=== PATIENT | male | born 1995 | race Caucasian/White ===

== ENCOUNTER 2016-11-18 20:30 | Emergency (ER) | payer BC ==
[2016-11-18] MEDS ORDERED: Bupivacaine 0.5%/EPINEPHrine 1:200,000 50 ML MDV NERVRT ONE (20:47)
--- NOTE | 2016-11-18 20:58 | EDM.PDOC ---
ED HPI GENERAL MEDICAL PROBLEM - General Chief Complaint: ENT Problem Stated Complaint: TOOTHACHE Time Seen by Provider: 11/18/16 20:40 Source of Information: Reports: Patient History Limitations: Reports: No Limitations - History of Present Illness INITIAL COMMENTS - FREE TEXT/NARRATIVE: 21 yo male here with a toothache. Onset last night. Saw his primary today and did not mention the pain. Has not made a dentist appt yet. No fever or facial swelling. Onset Date: 11/17/16 Duration: Hour(s):, Getting Worse Location: Reports: Face Quality: Reports: Ache Severity: Moderate Improves with: Reports: None Worsens with: Reports: Other (Time/eating) Context: Reports: Other (dental neglect) Associated Symptoms: Reports: No Other Symptoms Treatments REHAB CARE ASSISTANT: Reports: Other (see below) (none) - Related Data Allergies Allergy/AdvReac Type Severity Reaction Status Date / Time No Known Allergies Allergy Verified 11/18/16 20:47 Home Meds: Home Meds Diclofenac Sodium [Diclofenac Sodium] 1 tab PO BID 11/18/16 [History] Hydrocodone/Acetaminophen [[place] 5-325] 1 tab PO Q4H PRN #10 tablet 11/18/16 [Rx ] Penicillin V Potassium 500 mg PO Q6HR #30 tab 11/18/16 [Rx] ED ROS ENT - Review of Systems Review Of Systems: See Below Constitutional: Reports: No Symptoms HEENT: Reports: Dental Pain Respiratory: Reports: No Symptoms Cardiovascular: Reports: No Symptoms GI/Abdominal: Reports: No Symptoms Musculoskeletal: Reports: No Symptoms Skin: Reports: No Symptoms Neurological: Reports: No Symptoms ED EXAM, ENT - Physical Exam Exam: See Below Exam Limited By: No Limitations General Appearance: Alert, WD/WN, No Apparent Distress Eye Exam: Bilateral Eye: Normal Inspection, PERRL Ears: Normal External Exam, Normal Canal, Hearing Grossly Normal Nose: Normal Inspection, Normal Mucousa, No Blood Mouth/Throat: Normal Gums, Normal Lips, Normal Oropharynx, Dental Tenderness, Other (R upper posterior most molar is broken off and decayed and tender with percussion. ) Head: Atraumatic, Normocephalic Neck: Normal Inspection, Supple, Non-Tender, Full Range of Motion. No: Lymphadenopathy (R), Lymphadenopathy (L) Respiratory/Chest: No Respiratory Distress, Lungs Clear, Normal Breath Sounds, No Accessory Muscle Use Cardiovascular: Regular Rate, Rhythm, No Edema GI/Abdominal: Normal Bowel Sounds, Soft, Non-Tender, No Distention Back: Normal Inspection, Full Range of Motion Extremities: Normal Inspection, Normal Range of Motion, Non-Tender Neurological: Alert, Oriented, CN II-XII Intact, Normal Cognition, Normal Gait, Normal Reflexes, No Motor/Sensory Deficits Psychiatric: Normal Affect, Normal Mood Skin: Warm, Dry, Intact, Normal Color, No Rash Lymphatic: No Adenopathy Course - Vital Signs Text/Narrative:: Local injection with 5 ml of 0.5% bupivacaine with epi, relief afforded. PenVK 1000 mg po Last Recorded V/S: Last Vital Signs Temp 36.5 C 11/18/16 20:40 Pulse 68 11/18/16 20:40 Resp 16 11/18/16 20:40 BP 118/74 11/18/16 20:40 Pulse Ox 100 11/18/16 20:40 - Orders/Labs/Meds Meds: Medications Discontinued Medications Generic Name Dose Route Start Last Admin Trade Name Rufino PRN Reason Stop Dose Admin Bupivacaine HCl/Epinephrine Bitart 50 ml 11/18/16 20:47 Marcaine 0.5%/Epinephrine 1:200,000 NERVRT 11/18/16 20:48 ONETIME ONE Penicillin V Potassium 1,000 mg 11/18/16 21:01 Veetids PO 11/18/16 21:02 NOW STA Departure - Departure Time of Disposition: 21:10 Disposition: Home, Self-Care 01 Condition: good Clinical Impression: Pain due to dental caries - Discharge Information Prescriptions: Penicillin V Potassium 500 mg PO Q6HR #30 tab Hydrocodone/Acetaminophen [[place] 5-325] 1 tab PO Q4H PRN #10 tablet PRN Reason: Pain Referrals: PCP,None [Primary Care Provider] - Forms: ED Department Discharge Care Plan Goals: Take penicillin every 6 hrs. Take ibuprofen and/or acetaminophen as directed on the bottle for pain relief as needed. If needed substitute [place] for the acetaminophen. See a dentist orin. See your doctor for recheck if you cannot get into your dentist promptly.
[2016-11-18] MEDS ORDERED: Penicillin V Potassium 500 MG Tab PO STA (21:01)
[2016-11-18 21:43] VITALS: BP 130/75
== END 2016-11-18 21:30 | disposition home or self-care (01) ==
LOC: FB.ED 20:30
DX: K02.9 Dental caries, unspecified (principal)
CPT/HCPCS: 99282; A9270

== ENCOUNTER 2018-01-19 22:46 | Emergency (ER) | payer BC, OTHER ==
[2018-01-19 23:02] VITALS: BP 123/80
[2018-01-19] MEDS ORDERED: Albuterol/Ipratropium 3.0-0.5 MG/3 ML Neb Soln NEB ONE (23:09)
[2018-01-19] MEDS ORDERED: predniSONE 20 MG Tab PO ONE (23:13)
--- NOTE | 2018-01-20 06:52 | ER ---
DATE SEEN: 01/19/2018 CHIEF COMPLAINT: Cough. HISTORY OF PRESENT ILLNESS: This is a 22-year-old male complaining of a cough. This was initiated by contact with dust at work. It is nonproductive, constant, difficulty breathing. He has a history of asthma. REVIEW OF SYSTEMS: He complains of feeling weak and his head feeling hot. He denies fever or chest pain. No sore throat. ALLERGIES: No known allergies. PAST MEDICAL HISTORY: Asthma, HUS. PHYSICAL EXAMINATION: GENERAL: He is not in distress. VITAL SIGNS: He is afebrile and normotensive. His pulse is 112. ENT: Normal. NECK: Supple. CHEST: Clear. CARDIOVASCULAR: Normal. IMPRESSION: Acute asthma exacerbation. TREATMENT: DuoNeb x1 and prednisone 10 mg b.i.d. orally for 5 days. See physician in 1 to 2 days. Return to the emergency room with any worsening symptoms. /[id number] JONES/SUZY
== END 2018-01-19 23:30 | disposition home or self-care (01) ==
LOC: FB.ED 22:46
DX: J45.901 Unspecified asthma with (acute) exacerbation (principal)
CPT/HCPCS: 99282; A9270; J7620

== ENCOUNTER 2018-11-23 01:35 | Emergency (ER) | payer OTHER ==
[2018-11-23] MEDS ORDERED: Albuterol/Ipratropium 3.0-0.5 MG/3 ML Neb Soln NEB ONE (01:40)
[2018-11-23] MEDS: Albuterol/Ipratropium 3.0-0.5 MG/3 ML Neb Soln ONE ×2 (01:40→01:50)
[2018-11-23] MEDS ORDERED: predniSONE 20 MG Tab PO ONE (01:45)
[2018-11-23] MEDS ORDERED: Codeine/guaiFENesin 100-10 MG/5 ML Syrup 5 ML Cup PO ONE (01:46)
--- NOTE | 2018-11-23 01:50 | EDM.PDOC ---
ED HPI GENERAL MEDICAL PROBLEM - General Stated Complaint: COUGH Time Seen by Provider: 11/23/18 01:35 Source of Information: Reports: Patient History Limitations: Reports: Respiratory Distress - History of Present Illness INITIAL COMMENTS - FREE TEXT/NARRATIVE: 23 y.o.w.m came to the ED with a nonproductive cough in the past several hours. Pt has cough for 3 weeks, was seen by various Doctors and was told at first it is a virus and then he was told it is a pneumonia. He was given Zithromax, which he finished 4 days ago. He never smoked. No SOB, No CP. bp 127/87 RR 28 Pulse ox 100% Temp 36.8 Onset Date: 11/22/18 Onset Time: 22:00 Duration: Minutes:, Hour(s):, Intermittent Location: Reports: Chest Quality: Reports: Other (cough) Severity: Moderate Improves with: Reports: Medication Worsens with: Reports: Other Context: Reports: Other Associated Symptoms: Reports: Cough, Shortness of Breath - Related Data Allergies Allergy/AdvReac Type Severity Reaction Status Date / Time No Known Allergies Allergy Verified 01/19/18 22:54 Home Meds: Home Meds predniSONE [Prednisone] 20 mg PO DAILY #3 tablet 11/23/18 [Rx] Past Medical History - Past Health History Medical/Surgical History: Denies Medical/Surgical History Respiratory History: Reports: Asthma Hematologic History: Reports: Other (See Below) Other Hematologic History: 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 Social & Family History - Family History Family Medical History: Noncontributory - Caffeine Use Caffeine Use: Reports: Tea ED ROS GENERAL - Review of Systems Review Of Systems: See Below Constitutional: Reports: No Symptoms HEENT: Reports: No Symptoms Respiratory: Reports: Shortness of Breath, Wheezing, Cough Cardiovascular: Reports: No Symptoms Endocrine: Reports: No Symptoms GI/Abdominal: Reports: No Symptoms : Reports: No Symptoms Musculoskeletal: Reports: No Symptoms Skin: Reports: No Symptoms Neurological: Reports: No Symptoms Psychiatric: Reports: No Symptoms Hematologic/Lymphatic: Reports: No Symptoms Immunologic: Reports: No Symptoms ED EXAM, GENERAL - Physical Exam Exam: See Below Exam Limited By: Respiratory Distress General Appearance: Alert, WD/WN, Moderate Distress Eye Exam: Bilateral Eye: Normal Inspection Ears: Normal External Exam, Normal Canal Ear Exam: Bilateral Ear: Auricle Normal Nose: Normal Inspection, Normal Mucosa, No Blood Throat/Mouth: Normal Inspection, Normal Lips, Normal Teeth, Normal Voice, No Airway Compromise Head: Atraumatic, Normocephalic Neck: Normal Inspection, Supple, Non-Tender, Full Range of Motion Respiratory/Chest: No Respiratory Distress, Lungs Clear, Normal Breath Sounds Cardiovascular: Normal Peripheral Pulses, Regular Rate, Rhythm, No Edema, No Gallop GI/Abdominal: Normal Bowel Sounds, Soft, Non-Tender, No Organomegaly (Male) Exam: Deferred Rectal (Males) Exam: Deferred Back Exam: Normal Inspection, Full Range of Motion Extremities: Normal Inspection, Normal Range of Motion, Non-Tender Neurological: Alert, Oriented, CN II-XII Intact, Normal Cognition, Normal Gait Psychiatric: Normal Affect, Anxious Skin Exam: Warm, Dry, Intact, Normal Color, No Rash Lymphatic: No Adenopathy Course - Vital Signs Text/Narrative:: 23 y.o.w.m came to the ED with a nonproductive cough in the past several hours. Pt has cough for 3 weeks, was seen by various Doctors and was told at first it is a virus and then he was told it is a pneumonia. He was given Zithromax, which he finished 4 days ago. He never smoked. No SOB, No CP. bp 127/87 RR 28 Pulse ox 100% Temp 36.8 PE: WNWD W M with a severe nonproductive cough for several hours Imaging: CXE 2 views: NAD Impression: Possible reactive airway disease Tx: Duoneb, Albuterol, Prednisone, Codeine, Spiriva inhaler Reexam: Cough Improved 90% on D/C Plan: D/C with instructions Last Recorded V/S: Last Vital Signs Temp 36.8 C 11/23/18 01:40 Pulse 97 11/23/18 01:40 Resp 28 H 11/23/18 01:40 BP 124/87 11/23/18 01:40 Pulse Ox 100 11/23/18 01:40 - Orders/Labs/Meds Orders: Active Orders 24 hr Category Date Time Status RT Aerosol Therapy [RC] ASDIRECTED Care 11/23/18 01:40 Active RT Aerosol Therapy [RC] ASDIRECTED Care 11/23/18 02:29 Ordered RT Post Treatment Assessment [RC] Click to Edit Care 11/23/18 02:43 Ordered RT Post Treatment Assessment [RC] Click to Edit Care 11/23/18 02:45 Ordered CXR [Chest 2V] [CR] Stat Exams 11/23/18 01:59 Taken Tiotropium [Spiriva HandiHaler] Med 11/23/18 09:00 Ordered 18 mcg INH DAILY Medication Orders Tiotropium [place] (Spiriva Handihaler) 18 mcg INH DAILY ARMIN Last Admin: 11/23/18 02:47 Dose: 4 dose Meds: Medications Generic Name Dose Route Start Last Admin Trade Name Freq PRN Reason Stop Dose Admin Tiotropium [place] 18 mcg 11/23/18 09:00 11/23/18 02:47 Spiriva Handihaler INH 4 dose DAILY ARMIN Administration Discontinued Medications Generic Name Dose Route Start Last Admin Trade Name Freq PRN Reason Stop Dose Admin Albuterol 2.5 mg 11/23/18 02:29 11/23/18 02:39 Proventil Neb Soln NEB 11/23/18 02:30 2.5 mg ONETIME ONE Administration Albuterol/Ipratropium Confirm 11/23/18 01:39 11/23/18 01:50 Duoneb 3.0-0.5 Mg/3 Ml Administered 11/23/18 01:40 Not Given Dose 3 ml .ROUTE .STK-MED ONE Albuterol/Ipratropium 3 ml 11/23/18 01:40 11/23/18 01:40 Duoneb 3.0-0.5 Mg/3 Ml NEB 11/23/18 01:41 3 ml ONETIME ONE Administration Guaifenesin/Codeine Phosphate 5 ml 11/23/18 01:46 11/23/18 01:57 Robitussin Ac PO 11/23/18 01:47 5 ml ONETIME ONE Administration Hydroxyzine HCl 50 mg 11/23/18 02:10 11/23/18 02:22 Vistaril IM 11/23/18 02:11 50 mg ONETIME ONE Administration Prednisone 40 mg 11/23/18 01:45 11/23/18 01:53 Prednisone PO 11/23/18 01:46 40 mg ONETIME ONE Administration Tiotropium [place] 18 mcg 11/23/18 02:30 11/23/18 02:40 Spiriva Handihaler INH 11/23/18 02:31 1 dose ONETIME STA Administration Departure - Departure Time of Disposition: 02:46 Disposition: Home, Self-Care 01 Condition: Good Clinical Impression: Reactive airway disease with wheezing with acute exacerbation - Discharge Information Prescriptions: predniSONE [Prednisone] 20 mg PO DAILY #3 tablet Referrals: Jah Pringle MD [Primary Care Provider] - Additional Instructions: Please use the Spiriva In haler daily for 4 days, please take prednisone for 3 days, Please f/u, come back if your symptoms get worse acutely. - My Orders Last 24 Hours: My Active Orders 11/23/18 01:40 RT Aerosol Therapy [RC] ASDIRECTED 11/23/18 01:59 CXR [Chest 2V] [CR] Stat 11/23/18 02:29 RT Aerosol Therapy [RC] ASDIRECTED 11/23/18 02:43 RT Post Treatment Assessment [RC] Click to Edit 11/23/18 02:45 RT Post Treatment Assessment [RC] Click to Edit 11/23/18 09:00 Tiotropium [Spiriva HandiHaler] 18 mcg INH DAILY - Assessment/Plan Last 24 Hours: My Active Orders 11/23/18 01:40 RT Aerosol Therapy [RC] ASDIRECTED 11/23/18 01:59 CXR [Chest 2V] [CR] Stat 11/23/18 02:29 RT Aerosol Therapy [RC] ASDIRECTED 11/23/18 02:43 RT Post Treatment Assessment [RC] Click to Edit 11/23/18 02:45 RT Post Treatment Assessment [RC] Click to Edit 11/23/18 09:00 Tiotropium [Spiriva HandiHaler] 18 mcg INH DAILY
[2018-11-23] MEDS ORDERED: hydrOXYzine HCl 50 MG/ML SDV IM ONE (02:10)
[2018-11-23] MEDS ORDERED: Albuterol 0.083% 2.5 MG/3 ML Neb Soln NEB ONE (02:29)
[2018-11-23] MEDS ORDERED: Tiotropium Inhaler 18 MCG Inhalation Powder Cap Kit of 5 INH STA (02:30)
[2018-11-23 05:12] VITALS: BP 117/73
[2018-11-23] MEDS ORDERED: Tiotropium Inhaler 18 MCG Inhalation Powder Cap Kit of 5 INH SCH (09:00)
== END 2018-11-23 03:00 | disposition home or self-care (01) ==
LOC: FB.ED 01:35
DX: J45.901 Unspecified asthma with (acute) exacerbation (principal); Z79.899 Other long term (current) drug therapy
CPT/HCPCS: 71046; 94640; 96372; 99283; A9270; J3410; J7620-GY

== ENCOUNTER 2019-01-08 20:34 | Emergency (ER) | payer OTHER ==
[2019-01-08] MEDS ORDERED: Lidocaine 1% 20 ML MDV INFILT ONE (20:35)
[2019-01-08 21:44] VITALS: BP 126/78; PULSE 63
--- NOTE | 2019-01-08 23:30 | EDM.PDOC ---
ED HPI GENERAL MEDICAL PROBLEM - General Chief Complaint: General Stated Complaint: TOOTH ACHE Time Seen by Provider: 01/08/19 23:00 Source of Information: Reports: Patient History Limitations: Reports: No Limitations - History of Present Illness INITIAL COMMENTS - FREE TEXT/NARRATIVE: patient presents today with concern for acute onset of tooth pain that happened while he was at the fair in [place] this afternoon. He took 800 mg of ibuprofen which she got epigastric and prior to coming home, but states that the pain is severe. History of dental issues and is scheduled to have 3 teeth removed. He states that he is previously greatly benefit from getting a nerve block. No swelling, no fevers or chills, no difficulty swallowing and no other medical conditions contributing. - Related Data Allergies Allergy/AdvReac Type Severity Reaction Status Date / Time No Known Allergies Allergy Verified 01/08/19 21:41 Home Meds: Home Meds Albuterol Sulfate [Proair Hfa] 1 - 2 puff INH Q4HR PRN 11/23/18 [History] Past Medical History - Past Health History Medical/Surgical History: Denies Medical/Surgical History Respiratory History: Reports: Asthma Hematologic History: Reports: Other (See Below) Other Hematologic History: States he has had Wsullg-Pzfjaljhh-Tcgmsed condition since the age of 8. - Past Surgical History Musculoskeletal Surgical History: Reports: Other (See Below) Other Musculoskeletal Surgeries/Procedures:: hand surgery Social & Family History - Family History Family Medical History: Noncontributory - Tobacco Use Smoking Status *Q: Never Smoker Second Hand Smoke Exposure: No - Caffeine Use Caffeine Use: Reports: Soda - Recreational Drug Use Recreational Drug Use: No ED ROS GENERAL - Review of Systems Review Of Systems: ROS reveals no pertinent complaints other than HPI. ED EXAM, GENERAL - Physical Exam Exam: See Below Free Text/Narrative:: general: Alert, pleasant but clearly uncomfortable. Mouth exam shows poor dentition overall, throat is without erythema and mucous members are moist. He has no swelling noted of the jaw and no sinus tenderness. There are no signs of infection. He has pain of tooth 13 or 14 on the left upper maxilla Course - Vital Signs Text/Narrative:: tooth pain, likely carry related with no sign of forming abscess. Patient agreeable to dental block Utilizing a 27-gauge needle, 2 mL of 1% lidocaine without epi was injected into the posterior superior alveolar area. The patient reported immediate relief of his symptoms and was quite satisfied. He is already scheduled to have some teeth extracted. Discussed lrwn-wxc-esahlkh analgesics and other treatments for dental pain over the weekend. All questions answered Last Recorded V/S: Last Vital Signs Temp 36.7 C 01/08/19 21:15 Pulse 63 01/08/19 21:15 Resp 18 01/08/19 21:15 BP 126/78 01/08/19 21:15 Pulse Ox 100 01/08/19 21:15 Departure - Departure Time of Disposition: 23:27 Disposition: Home, Self-Care 01 Condition: Good Clinical Impression: Dental cavity - Discharge Information Referrals: Henry Miller MD [Primary Care Provider] - Forms: ED Department Discharge Additional Instructions: call dentist ibuprofen ok 800mg (4 tabs) drink lots of water with this tylenol per bottle dental kit, available at some pharmacies, usually has clove oil, sometimes peppermint oil, benzocaine gel -- all helpful topicals
== END 2019-01-08 23:35 | disposition home or self-care (01) ==
LOC: FB.ED 20:34
DX: K02.9 Dental caries, unspecified (principal); J45.909 Unspecified asthma, uncomplicated; Z79.899 Other long term (current) drug therapy
CPT/HCPCS: 64400; 99283; J2001

== ENCOUNTER 2019-08-05 19:03 | Emergency (ER) | payer BC, OTHER ==
[2019-08-05] MEDS ORDERED: Sodium Chloride 0.9% 10 ML Syringe FLUSH PRN (19:31)
--- NOTE | 2019-08-05 19:33 | EDM.PDOC ---
ED HPI GENERAL MEDICAL PROBLEM - General Stated Complaint: chest pain Time Seen by Provider: 08/05/19 19:20 Source of Information: Reports: Patient History Limitations: Reports: No Limitations - History of Present Illness INITIAL COMMENTS - FREE TEXT/NARRATIVE: 21-year-old male who states that about 8 AM today just after a team meeting at his work he was walking to the shop and he developed pain in his left upper chest and shoulder area that was a sharp type pain and was quite severe. It was also an aching and cramping type pain that at times during the personal but it did go up to a 10/10 level of pain. The pain has really never gone away at all through the day and has had a constant aching pain underneath it that he rates as a 4/10 which it is now. He has had no cough. He has had no fevers. No hemoptysis. He does feel somewhat short of breath. The pain does seem to go into his shoulder and his upper back. It is reproducible by taking a deep breath. No syncope but when the pain gets very severe he does feel presyncopal. There are no other associated signs or symptoms. There are no other modifying factors. 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 - Past Surgical History Musculoskeletal Surgical History: Reports: Other (See Below) Other Musculoskeletal Surgeries/Procedures:: Tendon repair of left hand Social & Family History - Tobacco Use Smoking Status *Q: Unknown Ever Smoked (Nonsmoker) Tobacco Use Within Last Twelve Months: Smokeless Tobacco - Caffeine Use Caffeine Use: Reports: Soda - Alcohol Use Alcohol Use History: Yes Alcohol Use Frequency: Daily (3-4 beers daily) - Living Situation & Occupation Occupation: Employed ED ROS GENERAL - Review of Systems Review Of Systems: See Below Constitutional: Reports: No Symptoms HEENT: Reports: No Symptoms Respiratory: Reports: Shortness of Breath, Pleuritic Chest Pain Cardiovascular: Reports: Chest Pain Endocrine: Reports: No Symptoms GI/Abdominal: Reports: No Symptoms : Reports: No Symptoms Musculoskeletal: Reports: Shoulder Pain (Left), Arm Pain (Left) Skin: Reports: No Symptoms Neurological: Reports: No Symptoms Hematologic/Lymphatic: Reports: No Symptoms Immunologic: Reports: No Symptoms ED EXAM, GENERAL - Physical Exam Exam: See Below Exam Limited By: No Limitations General Appearance: Alert, WD/WN, Moderate Distress Eye Exam: Right Eye: Nystagmus, Bilateral Eye: EOMI, Normal Inspection, PERRL Ears: Normal External Exam, Hearing Grossly Normal Ear Exam: Bilateral Ear: Auricle Normal Nose: Normal Inspection, Normal Mucosa, No Blood Throat/Mouth: Normal Inspection, Normal Lips, Normal Oropharynx, Normal Voice, No Airway Compromise Head: Atraumatic, Normocephalic Neck: Normal Inspection, Supple, Non-Tender, Full Range of Motion Respiratory/Chest: No Respiratory Distress, Lungs Clear, Normal Breath Sounds, No Accessory Muscle Use, Chest Non-Tender Cardiovascular: Normal Peripheral Pulses, Regular Rate, Rhythm, No Edema, No Murmur Peripheral Pulses: 2+: Radial (L), Radial (R), Dorsalis Pedis (L), Dorsalis Pedis (R) GI/Abdominal: Normal Bowel Sounds, Soft, Non-Tender, No Mass Back Exam: Normal Inspection, Full Range of Motion Extremities: Normal Inspection, Normal Range of Motion, Non-Tender Neurological: Alert, Oriented, CN II-XII Intact, Normal Cognition, No Motor/ Sensory Deficits Skin Exam: Warm, Dry, Intact, Normal Color, No Rash EKG INTERPRETATION EKG Date: 08/05/19 Time: 19:12 Rhythm: NSR Rate (Beats/Min): 70 [place]: RAD-Right [place] Deviation P-Wave: Present QRS: Normal ST-T: Normal QT: Normal Comparison: NA - No Prior EKG Course - Vital Signs Last Recorded V/S: Last Vital Signs Temp 36.6 C 08/05/19 19:20 Pulse 73 08/05/19 19:20 Resp 16 08/05/19 19:20 BP 127/82 08/05/19 19:20 Pulse Ox 100 08/05/19 19:20 - Orders/Labs/Meds Orders: Active Orders 24 hr Category Date Time Status EKG Documentation Completion [RC] ASDIRECTED Care 08/05/19 19:32 Active Sodium Chloride 0.9% [Saline Flush] Med 08/05/19 19:31 Active 10 ml FLUSH ASDIRECTED PRN Peripheral IV Insertion Adult [OM.PC] Routine Oth 08/05/19 19:31 Ordered EKG 12 Lead [EK] Routine Ther 08/05/19 19:32 Ordered Medication Orders Sodium Chloride (Saline Flush) 10 ml FLUSH ASDIRECTED PRN PRN Reason: Keep Vein Open Labs: Laboratory Tests 08/05/19 08/05/19 08/05/19 Range/Units 19:50 19:50 19:50 WBC 6.5 (4.5-12.0) X10-3/uL RBC 4.91 (4.30-5.75) x10(6)uL Hgb 14.7 (13.5-17.8) g/dL Hct 43.4 (30.0-51.3) % MCV 88.4 (80-96) fL MCH 30.0 (27.7-33.6) pg MCHC 34.0 (32.2-35.4) g/dL RDW 12.1 (11.5-15.5) % Plt Count 357 (125-369) X10(3)uL MPV 7.2 L (7.4-10.4) fL Neut % (Auto) 62.5 (46-82) % Lymph % (Auto) 23.7 (13-37) % [place] % (Auto) 6.6 (4-12) % Eos % (Auto) 3 (1.0-5.0) % Baso % (Auto) 4 H (0-2) % Neut # (Auto) 4.1 (1.6-8.3) # Lymph # (Auto) 1.5 (0.6-5.0) # [place] # (Auto) 0.4 (0.0-1.3) # Eos # (Auto) 0.2 (0.0-0.8) # Baso # (Auto) 0.3 H (0.0-0.2) # D-Dimer, Quantitative < 0.19 (0.0-0.59) mg/LFEU Sodium 141 (135-145) mmol/L Potassium 4.0 (3.5-5.3) mmol/L Chloride 103 (100-110) mmol/L Carbon Dioxide 28 (21-32) mmol/L BUN 11 (7-18) mg/dL Creatinine 0.9 (0.70-1.30) mg/dL Est Cr Clr Drug Dosing 105.73 mL/min Estimated GFR (MDRD) > 60 (>60) BUN/Creatinine Ratio 12.2 (9-20) Glucose 86 (80-116) mg/dL Calcium 9.3 (8.6-10.2) mg/dL Magnesium 2.0 (1.8-2.5) mg/dL Total Bilirubin 0.4 (0.1-1.3) mg/dL AST 31 H (5-25) IU/L ALT 22 (12-36) U/L Alkaline Phosphatase 82 (56-112) IU/L Troponin I (4.0-60.3) pg/mL Total Protein 7.7 (6.0-8.0) g/dL Albumin 4.4 (3.5-5.2) g/dL Globulin 3.3 g/dL Albumin/Globulin Ratio 1.3 08/05/19 Range/Units 19:50 WBC (4.5-12.0) X10-3/uL RBC (4.30-5.75) x10(6)uL Hgb (13.5-17.8) g/dL Hct (30.0-51.3) % MCV (80-96) fL MCH (27.7-33.6) pg MCHC (32.2-35.4) g/dL RDW (11.5-15.5) % Plt Count (125-369) X10(3)uL MPV (7.4-10.4) fL Neut % (Auto) (46-82) % Lymph % (Auto) (13-37) % [place] % (Auto) (4-12) % Eos % (Auto) (1.0-5.0) % Baso % (Auto) (0-2) % Neut # (Auto) (1.6-8.3) # Lymph # (Auto) (0.6-5.0) # [place] # (Auto) (0.0-1.3) # Eos # (Auto) (0.0-0.8) # Baso # (Auto) (0.0-0.2) # D-Dimer, Quantitative (0.0-0.59) mg/LFEU Sodium (135-145) mmol/L Potassium (3.5-5.3) mmol/L Chloride (100-110) mmol/L Carbon Dioxide (21-32) mmol/L BUN (7-18) mg/dL Creatinine (0.70-1.30) mg/dL Est Cr Clr Drug Dosing mL/min Estimated GFR (MDRD) (>60) BUN/Creatinine Ratio (9-20) Glucose (80-116) mg/dL Calcium (8.6-10.2) mg/dL Magnesium (1.8-2.5) mg/dL Total Bilirubin (0.1-1.3) mg/dL AST (5-25) IU/L ALT (12-36) U/L Alkaline Phosphatase (56-112) IU/L Troponin I 4.7 (4.0-60.3) pg/mL Total Protein (6.0-8.0) g/dL Albumin (3.5-5.2) g/dL Globulin g/dL Albumin/Globulin Ratio Meds: Medications Generic Name Dose Route Start Last Admin Trade Name Freq PRN Reason Stop Dose Admin Sodium Chloride 10 ml 08/05/19 19:31 Saline Flush FLUSH ASDIRECTED PRN Keep Vein Open Discontinued Medications Generic Name Dose Route Start Last Admin Trade Name Freq PRN Reason Stop Dose Admin Ketorolac Tromethamine 30 mg 08/05/19 21:33 Toradol IVPUSH 08/05/19 21:34 ONETIME ONE - Radiology Interpretation Free Text/Narrative:: Portable chest x-ray showed no acute disease per the radiologist. - Re-Assessments/Exams Free Text/Narrative Re-Assessment/Exam: 08/05/19 21:57: The patient's blood tests were all reassuringly normal. Specifically, his d-dimer and troponin were both normal. The EKG was normal. The chest x-ray was normal. This appears to be musculoskeletal chest pain or costochondritis. I'll had ordered Toradol 30 mg IV to be given and that will be given prior to his discharge. He is currently having 5/10 level of pain in his left chest with breathing and with movement of his left arm. He will need to avoid any strenuous use with his left arm is week and he will need to take ibuprofen and Tylenol for his pain as needed. Departure - Departure Time of Disposition: 22:10 Disposition: Home, Self-Care 01 Condition: Good Clinical Impression: Chest wall pain, Costochondritis, acute - Discharge Information Instructions: Costochondritis, Gtec-mw-Ufbs, Chest Wall Pain, [id number] Referrals: Henry Miller MD [Primary Care Provider] - Additional Instructions: Your blood tests were all reassuringly normal. These rule out both a heart attack and blood clots. You appear to have inflammation of the cartilage between your ribs and your breastbone. This is called costochondritis. You should avoid any strenuous use with your left arm for the next week. You should take ibuprofen and Tylenol for pain as needed. Back to the emergency department for coughing up blood, marked increase in pain, trouble breathing, high fever or any other concerning sign or symptom. Sepsis Event Note - Focused Exam Vital Signs: Vital Signs Temp Pulse Resp BP Pulse Ox 08/05/19 19:20 36.6 C 73 16 127/82 100 Date Exam was Performed: 08/05/19 Time Exam was Performed: 22:02 - My Orders Last 24 Hours: My Active Orders 08/05/19 19:31 Sodium Chloride 0.9% [Saline Flush] 10 ml FLUSH ASDIRECTED PRN Peripheral IV Insertion Adult [OM.PC] Routine 08/05/19 19:32 EKG Documentation Completion [RC] ASDIRECTED EKG 12 Lead [EK] Routine - Assessment/Plan Last 24 Hours: My Active Orders 08/05/19 19:31 Sodium Chloride 0.9% [Saline Flush] 10 ml FLUSH ASDIRECTED PRN Peripheral IV Insertion Adult [OM.PC] Routine 08/05/19 19:32 EKG Documentation Completion [RC] ASDIRECTED EKG 12 Lead [EK] Routine
[2019-08-05 20:07] VITALS: BP 127/82; PULSE 73
--- NOTE | 2019-08-05 20:49 | CR ---
INDICATION: Chest pain. CHEST, ONE VIEW: Portable AP upright view of the chest 08/05/19 was compared with PA view of 11/23/18. The lungs appear to be somewhat hyperaerated. However, no active infiltrate or effusion was identified. The heart, mediastinum and bony thorax were unremarkable except for a suggestion of very minimal dextroconvex scoliosis of the thoracic spine. Overlying EKG leads are noted. No evidence of pneumothorax was seen. IMPRESSION: 1. No definite acute process. The lungs appear to be somewhat hyperaerated. 2. There is suggestion of minimal scoliosis. MTDD
[2019-08-05] MEDS ORDERED: Ketorolac 30 MG/ML SDV IVPUSH ONE (21:33)
== END 2019-08-05 22:30 | disposition home or self-care (01) ==
LOC: FB.ED 19:03
DX: M94.0 Chondrocostal junction syndrome [Tietze] (principal); J45.909 Unspecified asthma, uncomplicated; Z79.899 Other long term (current) drug therapy
CPT/HCPCS: 36415; 71045; 80053; 83735; 84484; 85025; 85379; 93005; 96374; 99285-25; J1885

== ENCOUNTER 2020-09-12 18:43 | Emergency (ER) | payer BC ==
--- NOTE | 2020-09-12 19:31 | EDM.PDOC ---
ED HPI GENERAL MEDICAL PROBLEM - General Stated Complaint: BLOOD IN STOOL Time Seen by Provider: 09/12/20 18:45 Source of Information: Reports: Patient History Limitations: Reports: No Limitations - History of Present Illness INITIAL COMMENTS - FREE TEXT/NARRATIVE: Patient presented to the ED because of bright red blood in stool. He has a history of internal hemorrhoids. - Related Data Allergies Allergy/AdvReac Type Severity Reaction Status Date / Time No Known Allergies Allergy Verified 08/05/19 20:08 Home Meds: Home Meds Albuterol Sulfate [Proair Hfa] 1 - 2 puff INH Q4HR PRN 11/23/18 [History] Hydrocortisone Acetate [Proctocort] 1 supp RC TID #15 supp.rect 09/12/20 [Rx] Past Medical History - Past Health History Medical/Surgical History: Denies Medical/Surgical History Cardiovascular History: Reports: Other (See Below) Other Cardiovascular History: Holter Monitor around 2016, and Stress Test around 2018. 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 - Past Surgical History Musculoskeletal Surgical History: Reports: Other (See Below) Other Musculoskeletal Surgeries/Procedures:: Tendon repair of left hand Social & Family History - Family History Family Medical History: No Pertinent Family History - Caffeine Use Caffeine Use: Reports: Soda - Living Situation & Occupation Occupation: Employed ED ROS GENERAL - Review of Systems Review Of Systems: See Below Constitutional: Reports: No Symptoms HEENT: Reports: No Symptoms Respiratory: Reports: No Symptoms Cardiovascular: Reports: No Symptoms Endocrine: Reports: No Symptoms GI/Abdominal: Reports: No Symptoms : Reports: No Symptoms Musculoskeletal: Reports: No Symptoms Skin: Reports: No Symptoms Neurological: Reports: No Symptoms Psychiatric: Reports: No Symptoms ED EXAM, GI/ABD - Physical Exam Exam: See Below Exam Limited By: No Limitations General Appearance: Alert, No Apparent Distress Ears: Normal External Exam, Normal Canal, Hearing Grossly Normal Nose: Normal Inspection, No Blood, Nasal Swelling Throat/Mouth: Normal Inspection Head: Atraumatic, Normocephalic Neck: Normal Inspection, Supple, Non-Tender, Full Range of Motion Respiratory/Chest: No Respiratory Distress, Lungs Clear, Normal Breath Sounds Cardiovascular: Normal Peripheral Pulses, Regular Rate, Rhythm, No Edema, No Gallop GI/Abdominal Exam: Normal Bowel Sounds, Soft, Non-Tender, No Organomegaly Back Exam: Normal Inspection, Full Range of Motion Course - Vital Signs Text/Narrative:: Hb-normal Anusol Rectal Supp - Orders/Labs/Meds Orders: Active Orders 24 hr Category Date Time Status Hydrocortisone Acetate [Anucort-HC] Med 09/12/20 19:31 Stat 25 mg RECTAL NOW STA Labs: Laboratory Tests 09/12/20 Range/Units 19:00 WBC 10.2 H (3.2-10.1) x10-3/uL RBC 4.82 (3.90-5.90) x10(6)uL Hgb 14.5 (12.9-17.7) g/dL Hct 44.0 (38.3-50.1) % MCV 91.3 (80.8-98.7) fL MCH 30.1 (27.0-33.3) pg MCHC 33.0 (28.7-35.3) g/dL RDW 13.9 (12.4-15.0) % Plt Count 323 (117-477) x10(3)uL MPV 7.1 (6.7-11.0) fL Neut % (Auto) 79.4 H (40.3-71.8) % Lymph % (Auto) 13.2 L (15.8-45.3) % [place] % (Auto) 5.8 (5.5-15.2) % Eos % (Auto) 1.5 (0.1-6.8) % Baso % (Auto) 0.1 L (0.3-3.8) % Neut # (Auto) 8.1 H (1.7-6.9) x10-3/uL Lymph # (Auto) 1.3 (0.5-4.5) x10-3/uL [place] # (Auto) 0.6 (0.0-1.2) x10-3/uL Eos # (Auto) 0.2 (0.0-0.6) x10-3/uL Baso # (Auto) 0.0 (0.0-0.3) x10-3/uL Departure - Departure Time of Disposition: 19:40 Disposition: Home, Self-Care 01 Condition: Good Clinical Impression: Internal hemorrhoid, bleeding - Discharge Information Prescriptions: Hydrocortisone Acetate [Proctocort] 1 supp RC TID #15 supp.rect Referrals: PCP,None [Primary Care Provider] - Additional Instructions: Please read discharge instructions on bleeding internal hemorrhoids Apply the proctocort rectal suppository 3 times daily for 5 days Follow up as needed - My Orders Last 24 Hours: My Active Orders 09/12/20 19:31 Hydrocortisone Acetate [Anucort-HC] 25 mg RECTAL NOW STA - Assessment/Plan Last 24 Hours: My Active Orders 09/12/20 19:31 Hydrocortisone Acetate [Anucort-HC] 25 mg RECTAL NOW STA
[2020-09-12] MEDS: Hydrocortisone Acetate 25 MG Supp RECTAL STA (20:02)
[2020-09-12 20:41] VITALS: BP 122/77; PULSE 71
== END 2020-09-12 20:05 | disposition home or self-care (01) ==
LOC: FB.ED 18:43
DX: K64.8 Other hemorrhoids (principal); J45.909 Unspecified asthma, uncomplicated
CPT/HCPCS: 36415; 85025; 99283; A9270

== ENCOUNTER 2021-03-03 02:05 | Emergency (ER) | payer BC, MEDICAID ==
[2021-03-03 02:21] VITALS: BP 145/87; PULSE 92
[2021-03-03] MEDS ORDERED: hydrOXYzine HCl 50 MG/ML SDV IM ONE (02:27)
[2021-03-03] MEDS ORDERED: Ketorolac 30 MG/ML SDV IM ONE (02:27)
--- NOTE | 2021-03-03 02:31 | EDM.PDOC ---
ED HPI GENERAL MEDICAL PROBLEM - General Chief Complaint: Upper Extremity Injury/Pain Stated Complaint: CHEST PAIN Time Seen by Provider: 03/03/21 02:28 Source of Information: Reports: Patient History Limitations: Reports: No Limitations - History of Present Illness INITIAL COMMENTS - FREE TEXT/NARRATIVE: Luis complains of left sided chest pain x 3 days,. Initially stared as let shoulder pain,and he thought he pulled a muscle. Now the pain is localized in the left side of the chest,.worse with breathing,. No SOB or GI symptoms. he has a h/o of HUS,depression and anxiety Left Shoulder Pain Score (Numeric/FACES): 8 - Related Data Allergies Allergy/AdvReac Type Severity Reaction Status Date / Time No Known Allergies Allergy Verified 09/12/20 20:23 Home Meds: Home Meds Albuterol Sulfate [Proair Hfa] 1 - 2 puff INH Q4HR PRN 11/23/18 [History] Hydrocortisone Acetate [Proctocort] 1 supp RC TID #15 supp.rect 09/12/20 [Rx] Past Medical History - Past Health History Medical/Surgical History: Denies Medical/Surgical History Cardiovascular History: Reports: Other (See Below) Other Cardiovascular History: Holter Monitor around 2016, and Stress Test around 2018. IGA vasculitis. 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 - Past Surgical History Musculoskeletal Surgical History: Reports: Other (See Below) Other Musculoskeletal Surgeries/Procedures:: Tendon repair of left hand Social & Family History - Family History Family Medical History: No Pertinent Family History - Caffeine Use Caffeine Use: Reports: Coffee, Soda - Alcohol Use Days Per Week of Alcohol Use: 7 Number of Drinks Per Day: 4 Total Drinks Per Week: 28 - Recreational Drug Use Recreational Drug Use: No - Living Situation & Occupation Occupation: Employed Review of Systems - Review of Systems Review Of Systems: Comprehensive ROS is negative, except as noted in HPI. ED EXAM, GENERAL - Physical Exam Exam: See Below Exam Limited By: No Limitations General Appearance: Alert, Anxious Ears: Normal External Exam, Normal Canal, Hearing Grossly Normal, Normal TMs Ear Exam: Bilateral Ear: Auricle Normal, Canal Normal, TM normal Throat/Mouth: Normal Inspection Head: Atraumatic Neck: Normal Inspection Respiratory/Chest: No Respiratory Distress, Lungs Clear Cardiovascular: Normal Peripheral Pulses, Regular Rate, Rhythm Extremities: Normal Inspection, Normal Range of Motion, Non-Tender. No: Pedal Edema Psychiatric: Anxious Skin Exam: Warm, Dry, Intact #1 Interpretation EKG Date: 03/03/21 Rhythm: NSR [place]: Normal P-Wave: Present ST-T: Normal Comparison: NA - No Prior EKG Course - Vital Signs Last Recorded V/S: Last Vital Signs Temp 98.9 F 03/03/21 02:05 Pulse 92 03/03/21 02:05 Resp 20 03/03/21 02:05 BP 145/87 H 03/03/21 02:05 Pulse Ox 100 03/03/21 02:05 - Orders/Labs/Meds Orders: Active Orders 24 hr Category Date Time Status EKG 12 Lead [EK] Routine Ther 03/03/21 02:34 Ordered Meds: Medications Discontinued Medications Generic Name Dose Route Start Last Admin Trade Name Freq PRN Reason Stop Dose Admin Hydroxyzine HCl 100 mg 03/03/21 02:27 03/03/21 02:33 Hydroxyzine Hcl 50 Mg/Ml Sdv IM 03/03/21 02:28 100 mg ONETIME ONE Administration Ketorolac Tromethamine 60 mg 03/03/21 02:27 03/03/21 02:33 Ketorolac 30 Mg/Ml Sdv IM 03/03/21 02:28 60 mg ONETIME ONE Administration Departure - Departure Time of Disposition: 11:20 Disposition: Home, Self-Care 01 Clinical Impression: Chest wall pain - Discharge Information Instructions: Nonspecific Chest Pain, Adult Referrals: PCP,Unknown [Ordering Only Provider] - 03/06/21 () Forms: ED Department Discharge Additional Instructions: follow up with your primary care provider if symptoms persist. May take tylenol 1000mg every 8 hours and ibuprofen 600mg every 8 hours as needed for pain. apply heat or ice to shoulder, which ever feels most comfortable to you. Sepsis Event Note (ED) - Evaluation Sepsis Screening Result: No Definite Risk - Focused Exam Vital Signs: Vital Signs Temp Pulse Resp BP Pulse Ox 03/03/21 02:05 98.9 F 92 20 145/87 H 100 - Problem List & Annotations (1) Atypical chest pain SNOMED Code(s): 229037510 Code(s): R07.89 - OTHER CHEST PAIN Status: Acute (2) Chest wall pain SNOMED Code(s): 028061578 Code(s): R07.89 - OTHER CHEST PAIN Status: Acute - Problem List Review Problem List Initiated/Reviewed/Updated: Yes - My Orders Last 24 Hours: My Active Orders 03/03/21 02:34 EKG 12 Lead [EK] Routine - Assessment/Plan Last 24 Hours: My Active Orders 03/03/21 02:34 EKG 12 Lead [EK] Routine Plan: Toradol 60 mg IM and Vistaril 100 mg IM
== END 2021-03-03 02:52 | disposition home or self-care (01) ==
LOC: FB.ED 02:05
DX: R07.89 Other chest pain (principal)
CPT/HCPCS: 93005; 96372; 99284; J1885; J3410

== ENCOUNTER 2023-11-05 21:06 | Emergency (ER) | payer SELFPAY ==
[2023-11-05] MEDS: Sodium Chloride 0.9% 1,000 ML IV ONE (21:50)
[2023-11-05] MEDS: Ondansetron 4 MG/2 ML SDV IVPUSH ONE (21:50)
[2023-11-05] MEDS: Morphine 2 MG/ML SYRINGE IVPUSH ONE (21:51)
[2023-11-05 21:53] LABS: EOSINOPHILS ABSOLUTE AUTO 0.2 x10-3/uL (0.0-0.6); MEAN CORPUSCULAR VOLUME 91.8 fL (80.8-98.7)
[2023-11-05 21:56] LABS: A/G RATIO 1.1; ALANINE AMINOTRANSFERASE,ALT 26 U/L (12-36); ALBUMIN 4.1 g/dL (3.5-5.2); ALKALINE PHOSPHATASE 74 IU/L (56-112); ASPARTATE AMNIOTRANSFERASE,AST 24 IU/L (5-25); BILIRUBIN TOTAL 0.6 mg/dL (0.1-1.3); BLOOD UREA NITROGEN,BUN 9 mg/dL (7-18); BUN/CREATININE RATIO 8.2 (9-20); CALCIUM 8.6 mg/dL (8.6-10.2); CARBON DIOXIDE,CO2 29 mmol/L (21-32); CHLORIDE,CL 100 mmol/L (100-110); CREATININE 1.1 mg/dL (0.70-1.30); EST CRCL DRUG DOSING (CG) 97.08 mL/min; ESTIMATED GFR 94 mL/min (>60); GLUCOSE RANDOM 93 mg/dL (80-116); MAGNESIUM 1.8 mg/dL (1.8-2.5); PROTEIN TOTAL,TP 7.7 g/dL (6.0-8.0); SODIUM,NA 137 mmol/L (135-145)
[2023-11-05 22:00] VITALS: PULSE 64
[2023-11-05 22:08] LABS: BASOPHILS PERCENT AUTO 0.3 % (0.3-3.8); EOSINOPHILS PERCENT AUTO 2.8 % (0.1-6.8); HEMATOCRIT 45.7 % (38.3-50.1); HEMOGLOBIN 15.1 g/dL (12.9-17.7); LYMPHOCYTES ABSOLUTE AUTO 1.7 x10-3/uL (0.5-4.5); LYMPHOCYTES PERCENT AUTO 21.5 % (15.8-45.3); MEAN CORPUSCULAR HEMOGLOBIN 30.4 pg (27.0-33.3); MEAN CORPUSCULAR HGB CONC 33.1 g/dL (28.7-35.3); MEAN PLATELET VOLUME 7.7 fL (6.7-11.0); MONOCYTES ABSOLUTE AUTO 0.9 x10-3/uL (0.0-1.2); MONOCYTES PERCENT AUTO 11.1 % (5.5-15.2); NEUTROPHILS ABSOLUTE AUTO 5.1 x10-3/uL (1.7-6.9); NEUTROPHILS PERCENT AUTO 64.3 % (40.3-71.8); PLATELET COUNT,PLT 272 x10(3)uL (117-477); RED BLOOD CELL COUNT 4.98 x10(6)uL (3.90-5.90); RED CELL DISTRIBUTION WIDTH 13.6 % (12.4-15.0); WHITE BLOOD CELL COUNT,WBC 8.6 x10-3/uL (3.2-10.1)
[2023-11-05] MEDS: Iopamidol 755 Mg/ML 100 ML Bottle IV SCH (22:28)
[2023-11-05 22:44] LABS: BILIRUBIN,URINE NEGATIVE (NEGATIVE); GLUCOSE,URINE NORMAL (NORMAL); KETONES,URINE NEGATIVE (NEGATIVE); LEUKOCYTE ESTERASE,URINE NEGATIVE (NEGATIVE); NITRITE,URINE NEGATIVE (NEGATIVE); OCCULT BLOOD,URINE LARGE (NEGATIVE); PROTEIN,URINE NEGATIVE (NEGATIVE); UROBILINOGEN,URINE NORMAL (NEGATIVE)
[2023-11-05] MEDS: Potassium Chloride 20 MEQ Tab.ER PO ONE (22:52)
[2023-11-05 22:53] LABS: APPEARANCE,URINE CLEAR (CLEAR); BACTERIA,URINE FEW (NS); COLOR,URINE YELLOW (YELLOW); SQUAMOUS EPITHELIAL CELLS,UR OCCASIONAL (NS,R,O); WBC,URINE 0-5 (0-5)
[2023-11-05] MEDS: Pantoprazole 40 MG Vial IVPUSH ONE (23:22)
[2023-11-05] MEDS: Alum Hydroxide/Mag Hydroxide 15 ML, Lidocaine 2% 15 ML PO ONE (23:22)
[2023-11-05 23:41] VITALS: BP 131/96
== END 2023-11-05 23:25 | disposition home or self-care (01) ==
LOC: FB.ED 21:06
DX: K29.20 Alcoholic gastritis without bleeding (principal); F10.120 Alcohol abuse with intoxication, uncomplicated; Y90.9 Presence of alcohol in blood, level not specified; Z79.899 Other long term (current) drug therapy
CPT/HCPCS: 36415; 74177; 80053; 80307; 81001; 83690; 83735; 85025; 96361; 96374; 96375; 99284-25; A9270-GY; C9113; J2270; J2405; J7030; Q9967

== ENCOUNTER 2025-03-16 05:31 | Inpatient (IN) | payer BC ==
[2025-03-16] MEDS ORDERED: Naloxone 0.4 MG/ML SDV IVPUSH PRN (05:50)
[2025-03-16] MEDS: Ketorolac 30 MG/ML SDV IVPUSH ONE (05:59)
[2025-03-16] MEDS: Prochlorperazine 10 MG/2 ML SDV IVPUSH ONE (05:59)
[2025-03-16 06:01] LABS: BASOPHILS ABSOLUTE AUTO 0.1 x10-3/uL (0.0-0.3); BASOPHILS PERCENT AUTO 1.0 % (0.3-3.8); EOSINOPHILS ABSOLUTE AUTO 0.3 x10-3/uL (0.0-0.6); EOSINOPHILS PERCENT AUTO 5.3 % (0.1-6.8); LYMPHOCYTES ABSOLUTE AUTO 1.7 x10-3/uL (0.5-4.5); LYMPHOCYTES PERCENT AUTO 31.1 % (15.8-45.3); MEAN PLATELET VOLUME 6.8 fL (6.7-11.0); MONOCYTES ABSOLUTE AUTO 0.6 x10-3/uL (0.0-1.2); MONOCYTES PERCENT AUTO 10.3 % (5.5-15.2); NEUTROPHILS ABSOLUTE AUTO 2.8 x10-3/uL (1.7-6.9); NEUTROPHILS PERCENT AUTO 52.3 % (40.3-71.8); PLATELET COUNT,PLT 380 x10(3)uL (117-477); RED BLOOD CELL COUNT 4.63 x10(6)uL (3.90-5.90); RED CELL DISTRIBUTION WIDTH 14.0 % (12.4-15.0); WHITE BLOOD CELL COUNT,WBC 5.4 x10-3/uL (3.2-10.1)
[2025-03-16 06:02] LABS: BLOOD UREA NITROGEN,BUN 5 mg/dL (7-18); CARBON DIOXIDE,CO2 25 mmol/L (21-32); CHLORIDE,CL 104 mmol/L (100-110); CREATININE 1.0 mg/dL (0.70-1.30); EST CRCL DRUG DOSING (CG) 100.16 mL/min; ESTIMATED GFR 99 mL/min (>60); GLUCOSE RANDOM 123 mg/dL (80-116); POTASSIUM,K 3.6 mmol/L (3.5-5.3); SODIUM,NA 141 mmol/L (135-145)
[2025-03-16 06:07] LABS: A/G RATIO 1.1; ALANINE AMINOTRANSFERASE,ALT 76 U/L (12-36); ASPARTATE AMNIOTRANSFERASE,AST 67 IU/L (5-25); BILIRUBIN TOTAL 0.5 mg/dL (0.1-1.3); PROTEIN TOTAL,TP 7.4 g/dL (6.0-8.0)
[2025-03-16 06:09] LABS: ETHANOL BLOOD MEDICAL < 0.03 % (<0.03)
[2025-03-16] MEDS: Iopamidol 755 Mg/ML 100 ML Bottle IV SCH (06:33)
[2025-03-16] MEDS ORDERED: LORazepam 2 MG/ML SDV IV PRN ×2 (07:28→08:11)
[2025-03-16] MEDS ORDERED: Ketorolac 30 MG/ML SDV IVPUSH PRN (07:28)
[2025-03-16] MEDS: HYDROmorphone 2 MG/ML SDV IVPUSH PRN (09:32)
[2025-03-16 14:37] LABS: AMPHETAMINES SCREEN, URINE NEGATIVE (NEGATIVE); BUPRENORPHINE SCREEN,URINE NEGATIVE (NEGATIVE); METHADONE SCREEN, URINE NEGATIVE (NEGATIVE); METHAMPHETAMINE SCREEN, URINE NEGATIVE (NEGATIVE); OXYCODONE SCREEN,URINE NEGATIVE (NEGATIVE)
[2025-03-16] MEDS: Ondansetron 4 MG/2 ML SDV IVPUSH PRN (14:43)
[2025-03-17 07:04] LABS: MEAN PLATELET VOLUME 6.9 fL (6.7-11.0); PLATELET COUNT,PLT 95 x10(3)uL (117-477); RED BLOOD CELL COUNT 4.16 x10(6)uL (3.90-5.90); RED CELL DISTRIBUTION WIDTH 14.3 % (12.4-15.0); WHITE BLOOD CELL COUNT,WBC 14.4 x10-3/uL (3.2-10.1)
[2025-03-17 07:17] LABS: A/G RATIO 1.1; ALANINE AMINOTRANSFERASE,ALT 62 U/L (12-36); ASPARTATE AMNIOTRANSFERASE,AST 113 IU/L (5-25); BILIRUBIN TOTAL 2.4 mg/dL (0.1-1.3); BLOOD UREA NITROGEN,BUN 28 mg/dL (7-18); CARBON DIOXIDE,CO2 25 mmol/L (21-32); CHLORIDE,CL 105 mmol/L (100-110); EST CRCL DRUG DOSING (CG) 28.94 mL/min; ESTIMATED GFR 21 mL/min (>60); GLUCOSE RANDOM 97 mg/dL (80-116); POTASSIUM,K 4.9 mmol/L (3.5-5.3); PROTEIN TOTAL,TP 6.4 g/dL (6.0-8.0); SODIUM,NA 138 mmol/L (135-145)
[2025-03-17 07:26] LABS: CREATININE 3.8 mg/dL (0.70-1.30)
[2025-03-17 07:42] LABS: BAND PERCENT MAN 3 % (0-6); LYMPHOCYTES PERCENT MAN 5 % (13-37); MONOCYTES PERCENT MAN 6 % (4-12); SEG NEUTROPHILS PERCENT MAN 86 % (46-82)
[2025-03-17] MEDS: fentaNYL 100 MCG/2 ML SDV IVPUSH PRN (09:00)
[2025-03-17] MEDS: Lactated Ringers 1,000 ML IV SCH (09:39)
[2025-03-17 13:18] VITALS: BP 136/93; PULSE 106
[2025-03-17 19:10] LABS: FENTANYL, URN, SCREEN Negative
== END 2025-03-17 11:32 | DRG 282 ==
LOC: EDBD 05:31 → FB.ED 05:31 → MERGE 08:30 → FB.MS 08:30
PROVIDERS: ADMIT Family Medicine; ATTEND Family Medicine
DX: K85.20 Alcohol induced acute pancreatitis without necrosis or infection (principal); F10.239 Alcohol dependence with withdrawal, unspecified; K29.20 Alcoholic gastritis without bleeding; F17.200 Nicotine dependence, unspecified, uncomplicated; N17.9 Acute kidney failure, unspecified
CPT/HCPCS: 36415; 74177; 80053; 80307; 83690; 85025; 94150; 96361; 96374; 96375; 99223; 99238; 99285-25; A9270-GY; J0780; J1171; J1885; J2270; J2405; J2470; J3010; J7030; J7120; Q0164; Q9967